=== PATIENT | male | born 2005 | race African-American/Black ===

== ENCOUNTER 2025-06-06 17:45 | Emergency (ER) | payer OTHER, SELFPAY ==
--- NOTE | ~2025-06-06 | US_ITS ---
EXAMINATION: US scrotum doppler DATE: 06/06/2025 19:08 INDICATION: Right testicular swelling TECHNIQUE: Testicular sonogram utilizing grayscale and Doppler COMPARISON: None. FINDINGS: The right testis measures 4.4 x 2.1 x 2.8 cm. The left testis measures 3.7 x 2.3 x 2.3 cm. Symmetric normal grayscale appearance to both testes. There is normal vascular flow to both testes. The right epididymis is normal with normal vascular flow. The left epididymis is normal with normal vascular flow. There is no varicocele or hydrocele. IMPRESSION: 1. Normal scrotal ultrasound. Reviewed, dictated and finalized at location A.
[2025-06-06 17:48] VITALS: BP 118/76; PULSE 113; RESP 18; TEMP 36.8; O2SAT 100
[2025-06-06 18:55] LABS: Add Urine Microscopic? NO; Appearance Urine Clear (Clear); Glucose Urine UA Negative (Negative); Leukocyte Esterase Ur Negative LEU/UL (Negative); Nitrate Urine Negative (Negative); Specific Grav Ur 1.024 (1.001-1.035)
[2025-06-06 20:01] LABS: Trichomonas Vag PCR NOT DETECTED (NOT DETECTE)
--- NOTE | 2025-06-06 20:57 | ED_ITS ---
HPI - General Adult General Chief complaint: Urogenital-Male Stated complaint: R testicle swollen Time Seen by Provider: 06/06/25 18:13 History of Present Illness HPI narrative: This is a 19-year-old male presenting with right testicle/groin discomfort. Patient says that 6 days ago he developed an achy pain in his right testicle/groin. He is not sure if it his groin or testicle that hurst but he thinks he may have pulled a muscle. This is causing him some significant anxiety. Patient is not sexually active. No concern for STDs. No dysuria urgency or frequency. Patient does not currently have any testicle pain. He does not remember any trauma. Exam Narrative: APPEARANCE: No apparent distress. Head: atraumatic. EYES: EOMI, NOSE: Atraumatic NECK: Trachea midline RESPIRATORY: No increased rate of breathing clear to auscultation CARDIOVASCULAR: RRR, ABDOMINAL: Non-distended soft nontender exam: Normal uncircumcised male genitalia, no tenderness to the right testicle or right testicle, treatments steroids reflex intact MUSCULOSKELETAl: Focal exam of the right groin did not reveal any masses, overlying skin changes or area tenderness. NEURO: Alert. Moving 4/4 extremities SKIN:: Warm, dry. Normal color PSYCHIATRIC: Normal affect Course Vital Signs Vital signs: Vital Signs Temperature 98.3 F 06/06/25 17:48 Pulse Rate 113 H 06/06/25 17:48 Respiratory Rate 18 06/06/25 17:48 Blood Pressure 118/76 06/06/25 17:48 Pulse Oximetry 100 06/06/25 17:48 Oxygen Delivery Room Air 06/06/25 17:48 Temperature 98.3 F 06/06/25 17:48 Pulse Rate 113 H 06/06/25 17:48 Respiratory Rate 18 06/06/25 17:48 Blood Pressure 118/76 06/06/25 17:48 Pulse Oximetry 100 06/06/25 17:48 Oxygen Delivery Room Air 06/06/25 17:48 Medical Decision Making [facility] Narrative Medical decision making narrative: -Course: 19-year-old male presenting with testicular versus groin discomfort. His testicular exam is unremarkable. As this is growing exam. Urinalysis, STD testing and scrotal ultrasound were also unremarkable. Patient was reassured and discharged follow-up with his primary care physician. Given return precautions. -DDX includes but is not limited to: Neoplasm, epididymitis, orchitis, torsion, muscle strain Vital Signs Vital Signs: Vital Signs Temperature 98.3 F 06/06/25 17:48 Pulse Rate 113 H 06/06/25 17:48 Respiratory Rate 18 06/06/25 17:48 Blood Pressure 118/76 06/06/25 17:48 Pulse Oximetry 100 06/06/25 17:48 Oxygen Delivery Room Air 06/06/25 17:48 Temperature 98.3 F 06/06/25 17:48 Pulse Rate 113 H 06/06/25 17:48 Respiratory Rate 18 06/06/25 17:48 Blood Pressure 118/76 06/06/25 17:48 Pulse Oximetry 100 06/06/25 17:48 Oxygen Delivery Room Air 06/06/25 17:48 Lab Data Labs: Lab Results 06/06/25 Range/Units 18:43 Urine Color Yellow (Yellow) Urine Appearance Clear (Clear) Urine pH 5.5 (5.0-9.0) Ur Specific [place] 1.024 (1.001-1.035) Urine Protein Negative (Negative) mg/dL Urine Glucose (UA) Negative (Negative) mg/dL Urine Ketones 1+ H (Negative) mg/dL Ur Blood (Man) Negative (Negative) Urine Nitrate Negative (Negative) Urine Bilirubin Negative (Negative) Urine Urobilinogen 1.0 (<2.0) mg/dL Leukocyte Esterase Rfl Negative (Negative) VIOLETTA/UL C. trachomatis (PCR) Not detected (NOT DETECTE) N. gonorrhoeae (PCR) Not detected (NOT DETECTE) T. vaginalis (PCR) Not detected (NOT DETECTE) Discharge Plan Discharge Clinical Impression: Pain in testicle, Groin pain Patient Disposition: Home Condition: Stable Instructions: Antibiotic Form, Testicle Pain (ED) Additional Instructions: You were seen in the emergency department for testicle pain. Please use Motrin Tylenol as needed. Please follow-up with your primary care physician for further management. Return if you develop severe pain or any new symptoms. Patient Language: Armenian Follow-up/Referrals: Alan Warner [Other] - 1 Week Referral Note: testicle/groin pain
== END 2025-06-06 21:09 | disposition home or self-care (01) ==
PROVIDERS: Physician Assistant; Emergency Provider Emergency Medicine
DX: R10.31 Right lower quadrant pain (principal); N50.811 Right testicular pain
CPT/HCPCS: 76870; 81003; 87491; 87591; 87661; 93976; 99284